=== PATIENT | male | born 1965 | race Caucasian/White ===

== ENCOUNTER 2016-12-18 19:32 | Emergency (ER) | payer BC ==
[~2016-12-18] VITALS: Ht 180.3 cm; Wt 79.4 kg
[2016-12-18] MEDS ORDERED: NIFEdipine 10 MG CAP ONE (19:53)
[2016-12-18] MEDS ORDERED: NIFEdipine 10 MG CAP PO ONE (20:00)
[2016-12-18 20:15] LABS: Urine Bilirubin Negative (Negative); Urine Blood Negative /uL (Negative); Urine Color Yellow (Yellow); Urine Glucose Normal (Normal); Urine Ketone Negative (Negative); Urine Nitrite Negative (Negative); Urine RBC <1 /hpf (0 - 3); Urine Urobilinogen Normal (Negative)
[2016-12-18 20:57] LABS: Basophils # (auto) 0.1 uL; Basophils % (auto) 0.5 % (0.0-2.0); Eosinophils # (auto) 0.5 uL; Eosinophils % (auto) 4.7 % (0.0-7.0); Hematocrit 47.7 % (41.0-53.0); Hemoglobin 15.7 g/dL (13.5-17.5); Lymphocytes # (auto) 2.2 uL; Lymphocytes % (auto) 20.1 % (10.0-50.0); Mean Corpuscular Hemoglobin 30.9 pg (28.0-32.0); Mean Corpuscular Volume 93.7 fL (80.0-100.0); Monocytes # (auto) 0.8 uL; Monocytes % (auto) 6.9 % (0.0-12.0); Neutrophils # (auto) 7.5 uL; Neutrophils % (auto) 67.8 % (37.0-80.0); Platelet Count (auto) 324 10^3/uL (140-450); White Blood Cell 11.1 10^3/uL (4.4-10.8)
[2016-12-18 21:13] LABS: Albumin 4.4 g/dL (3.4-5.0); Anion Gap 11 (5-15); Aspartate Aminotransferase 15 U/L (15-37); BUN/Creatinine Ratio 15.9; Blood Urea Nitrogen 17 mg/dL (7-18); Calcium 8.9 mg/dL (8.5-10.1); Carbon Dioxide 22 mmol/L (21-32); Chloride 106 mmol/L (98-107); GFR African American 93 mL/min; GFR Non-African American 77 mL/min; Glucose 115 mg/dL (74-106); Magnesium 2.3 mg/dL (1.6-2.6); Potassium 3.6 mmol/L (3.5-5.1); Sodium 139 mmol/L (136-145)
[2016-12-18 21:19] LABS: Alkaline Phosphatase 84 U/L (45-117); Bilirubin, Total 0.8 mg/dL (0.2-1.0)
[2016-12-19] MEDS ORDERED: ONDANSETRON ODT 4 MG TAB PO ONE ×2 (03:30→06:00)
[2016-12-19] MEDS ORDERED: HYDROmorphone HCL 2 MG/ML VL IM ONE (03:30)
[2016-12-19 07:24] VITALS: BP 137/91
[2016-12-19] MEDS ORDERED: ONDANSETRON HCL 4 MG/2 ML VIAL ONE (07:36)
== END 2016-12-19 05:52 | disposition home or self-care (01) ==
LOC: ER 19:32
DX: G43.909 Migraine, unspecified, not intractable, without status migrainosus (principal); I10 Essential (primary) hypertension
CPT/HCPCS: 36415; 70450; 80053; 81001; 83735; 84484; 85025; 96372; 99285; J1170; J2405; Q0162